=== PATIENT | female | born 1965 | race Caucasian/White ===

== ENCOUNTER 2018-12-12 19:56 | Emergency (ER) | payer SELFPAY ==
[2018-12-12] MEDS ORDERED: THIAMINE 200 MG/2 ML INJ ONE (20:27)
[2018-12-12] MEDS ORDERED: FOLIC ACID 5 MG/ML VIAL ONE (20:27)
[2018-12-12] MEDS ORDERED: NA CHLORIDE 0.9% 1,000 ML ONE (20:27)
[2018-12-12 20:31] LABS: Absolute Lymphocytes (CBC) 1.6 K/uL (0.7-4.9); Basophils % 1.8 % (0-1.3); Hematocrit 34.3 % (36.0-45.0); MPV 7.3 fL (7.6-11.3); RBC Red Blood Cell Count 3.99 M/uL (3.86-4.86)
--- NOTE | 2018-12-12 20:31 | RAD REPORT ---
EXAM DESCRIPTION: CT - Ct Stroke Brain Wo Cont - 12/12/2018 8:23 pm CLINICAL HISTORY: SLURRED SPEECH CVA symptomology. COMPARISON: No comparisons TECHNIQUE: All CT scans are performed using dose optimization technique as appropriate and may inclu de automated exposure control or mA/KV adjustment according to patient size. FINDINGS: No intracranial hemorrhage, hydrocephalus or extra-axial fluid collection.No areas of brai n edema or evidence of midline shift. The paranasal sinuses and mastoids are clear. The calvarium is intact. IMPRESSION: No acute intracranial abnormality. The findings were discussed with ER physician Dr. Alicea on 12/12/2018 at 8:17 p.m. by telephone.
[2018-12-12 20:35] LABS: Protime INR 0.96
--- NOTE | 2018-12-12 20:37 | RAD REPORT ---
EXAM DESCRIPTION: RAD - Chest Single View - 12/12/2018 8:29 pm CLINICAL HISTORY: stroke protocol Chest pain. COMPARISON: No comparisons FINDINGS: Portable technique limits examination quality. The lungs are grossly clear. The heart is mildly prominent in size. No displaced fractures. IMPRESSION: No acute intrathoracic process suspected.
[2018-12-12 20:58] LABS: ALT/SGPT 30 U/L (12-78); AST/SGOT 28 U/L (15-37); Albumin 3.3 g/dL (3.4-5.0); Alkaline Phosphatase 84 U/L (45-117); BUN Blood Urea Nitrogen 13 mg/dL (7-18); Bicarbonate 27 mmol/L (21-32); Bilirubin Direct 0.3 mg/dL (0-0.2); Bilirubin Total 0.9 mg/dL (0.2-1.0); Glucose Level 116 mg/dL (74-106); Potassium 3.2 mmol/L (3.5-5.1); Sodium Level 145 mmol/L (136-145)
[2018-12-12] MEDS ORDERED: ASPIRIN 81 MG CHEWABLE TABLET ONE (21:06)
--- NOTE | 2018-12-12 21:33 | ER ---
Nurse's Notes [facility] Name: Colleen Cornejo Age: 52 yrs Sex: Female : 1965 Arrival Date: 12/12/2018 Time: 20:01 Bed 2 Private MD: Diagnosis: Fall due to bumping against object;Pain in left upper arm-contusion;Alcohol abuse with intoxication;Abuse of non-psychoactive substances;Hypokalemia Presentation: 12/12 20:11 Presenting complaint: Patient states: "my left arm is hurting me. I took some jd3 medication I was told was OxyContin, but I don't know what it was. that was earlier in the morning though." the patient's adult child stated: "all of a sudden she was not able to stay awake to well and slurring her speech.". Transition of care: patient was not received from another setting of care. An acute neurological deficit is present. The charge nurse has been notified. The patient has been moved to a treatment area. Pre-hospital glucose is not applicable to this patient. Onset of symptoms was December 12, 2018. Risk Assessment: Do you want to hurt yourself or someone else? Patient reports no desire to harm self or others. Initial Sepsis Screen: Does the patient meet any 2 criteria? HR > 90 bpm. No. Patient's initial sepsis screen is negative. Does the patient have a suspected source of infection? No. Patient's initial sepsis screen is negative. Care prior to arrival: None. 20:11 Method Of Arrival: Wheelchair jd3 20:11 Acuity: ZAINA 2 jd3 Triage Assessment: 20:10 The onset of the patients symptoms was less than three hours ago. General: Behavior is ao calm, cooperative. General: Appears in no apparent distress. comfortable, Behavior is calm, cooperative. Pain: Complains of pain in left arm. EENT: No signs and/or symptoms were reported regarding the EENT system. Neuro: Level of Consciousness is awake, obeys commands, lethargic, Oriented to person, place, time, Speech is slurred, Facial symmetry appears normal, Pupils are PERRLA, Intact Reports weakness in Generalize. Cardiovascular: Capillary refill is > 3 seconds. Respiratory: Airway is patent Respiratory effort is even, unlabored, Respiratory pattern is regular, symmetrical. GI: No signs and/or symptoms were reported involving the gastrointestinal system. : No signs and/or symptoms were reported regarding the genitourinary system. Derm: Skin has lesions on Both arms and legs Skin is pink, warm \\T\\ dry. normal, Skin temperature is warm. Musculoskeletal: Circulation, motion, and sensation intact. Range of motion: intact in all extremities. 20:20 The onset of the patients symptoms was December 12, 2018 at 18:00. Pain: Complains of jd3 pain in left arm. Neuro: Level of Consciousness is awake, obeys commands, lethargic, Oriented to person, place, time, situation, Speech is slurred, Reports weakness in left arm. 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 - Social history:: Smoking status: unknown. - Ebola Screening: : Patient negative for fever greater than or equal to 101.5 degrees Fahrenheit, and additional compatible Ebola Virus Disease symptoms. Screenin:10 VAN Screening: Arm Drift: Minor drift. Visual Disturbance: No visual disturbance noted. ao Aphasia: Expressive aphasia noted. Provider notified of +VAN scoring. Neglect: No neglect noted. The patient has not been NPO before screening. The patient is alert, able to follow commands. The patient exhibits slurred or garbled speech. Provider notified of indication for Speech Therapy consult. The patient is not exhibiting difficulty speaking. The patient is exhibiting difficulty understanding words. The patient is able to swallow own secretions with no drooling or need for suction. Patient tolerated one teaspoon of water. No drooling, immediate coughing, gurgling, or clearing of the throat was noted. The patient tolerated 90mL of water. No drooling, immediate coughing, gurgling, or clearing of the throat was noted. The patient passed the bedside swallow screening. Oral medications may be given as ordered. Contact Physician for further diet orders. Provider notified of bedside swallow screening results: Ruben Nath MD. 20:24 Abuse screen: Denies threats or abuse. Denies injuries from another. Nutritional rr5 screening: No deficits noted. Tuberculosis screening: No symptoms or risk factors identified. Fall Risk IV access (20 points). Gait- Impaired (20 pts.). Total Benitez Fall Scale indicates Low Risk Score (25-44 pts). Fall prevention measures have been instituted. Side Rails Up X 2 Placed close to Nursing Station Frequent Obs/Assesments occuring Family Present and informed to notify staff if they need to leave bedside As available Patient and Family Educated on Fall Prevention Program and strategies. Assessment: 20:05 VAN Scoring: Arm Drift: Minor drift Visual Disturbance: No visual disturbance noted. ao Aphasia: Expressive aphasia noted. Provider notified of +VAN scoring. Neglect: No neglect noted. The patient has not been NPO before screening. The patient is alert, and able to follow commands. The patient exhibits slurred or garbled speech. The patient is exhibiting difficulty speaking. The patient does not exhibit difficulty understanding words. The patient is able to swallow own secretions with no drooling or need for suction. Patient tolerated one teaspoon of water. No drooling, immediate coughing, gurgling, or clearing of the throat was noted. The patient tolerated 90mL of water. No drooling, immediate coughing, gurgling, or clearing of the throat was noted. The patient passed the bedside swallow screening. Oral medications may be given as ordered. Contact Physician for further diet orders. Provider notified of bedside swallow screening results: Ruben Nath MD. 21:22 Reassessment: Patient appears in no apparent distress at this time. Patient and/or ao family updated on plan of care and expected duration. Pain level reassessed. Patient in bed with no SS of distress. 22:13 Reassessment: Patient appears in no apparent distress at this time. Patient and/or rr5 family updated on plan of care and expected duration. Pain level reassessed. 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 Patient states feeling better. Patient states symptoms have improved. 22:34 T-PA (Activase) Screening: Contraindications: Other: Pt negative for stroke per Dr rose mary Nath. Vital Signs: 20:17 BP 176 / 97; Pulse 118; Resp 19 S; Temp 98.5(TE); Pulse Ox 100% on R/A; Weight 61.23 kg jd3 (R); Height 5 ft. 4 in. (162.56 cm) (R); Pain 6/10; 21:22 BP 140 / 88; Pulse 94; Resp 18; Pulse Ox 100% on R/A; ao 22:05 BP 141 / 70; Pulse 90; Resp 16; Pulse Ox 99% on R/A; rr5 20:17 Body Mass Index 23.17 (61.23 kg, 162.56 cm) jd3 Sesser Coma Score: 20:15 Eye Response: spontaneous(4). Verbal Response: oriented(5). Motor Response: obeys rr5 commands(6). Total: 15. 22:05 Eye Response: spontaneous(4). Verbal Response: oriented(5). Motor Response: obeys rr5 commands(6). Total: 15. NIH Stroke Scale Scores: 21:51 NIHSS Score: 0 zeinab 23:11 NIHSS Score: 5 ao ED Course: 20:01 Patient arrived in ED. cl3 20:11 Ruben Nath MD is Attending Physician. zeinab 20:15 property assessment monitor on. Pulse ox on. NIBP on. rr5 20:15 Patient has correct armband on for positive identification. Placed in gown. Bed in low rr5 position. Call light in reach. Side rails up X2. 20:15 Inserted saline lock: 18 gauge in right forearm, using aseptic technique. Blood rr5 collected. 20:15 Patient maintains SpO2 saturation greater than 95% on room air. rr5 20:16 Triage completed. jd3 20:20 Arm band placed on Patient placed in an exam room, on a stretcher, on monitoring engineer, jd3 on pulse oximetry. 20:24 Donn Posey, MUKESH is Primary Nurse. ao 20:25 CT Stroke Brain w/o Contrast In Process Unspecified. EDMS 20:30 Stroke CXR 1 View In Process Unspecified. EDMS 21:14 Humerus Left XRAY In Process Unspecified. EDMS 22:05 Shoulder immobilizer applied on left shoulder. rr5 22:12 No provider procedures requiring assistance completed. IV discontinued, intact, rr5 bleeding controlled, No redness/swelling at site. Pressure dressing applied. Administered Medications: 20:31 Drug: NS 0.9% 1000 ml Route: IV; Rate: 1 bolus; Site: right forearm; rr5 22:00 Follow up: Response: No adverse reaction; IV Status: Completed infusion; IV Intake: rr5 1000ml 20:31 Drug: Thiamine 100 mg Route: IV; Rate: bolus; Site: right forearm; rr5 22:00 Follow up: Response: No adverse reaction; IV Status: Completed infusion rr5 20:31 Drug: foLIC Acid 1 mg Route: IVPB; Site: right forearm; rr5 22:00 Follow up: Response: No adverse reaction; IV Status: Completed infusion rr5 21:11 Drug: Aspirin Chewable Tablet 162 mg Route: PO; rr5 22:11 Follow up: Response: No adverse reaction rr5 22:00 Drug: Potassium Effervescent Tablet 50 mEq Route: PO; rr5 22:15 Follow up: Response: Medication administered at discharge. rr5 Point of Care Testing: Blood Glucose: 20:17 Blood Glucose: 120 mg/dL; jd3 Ranges: Intake: 22:00 IV: 1000ml; Total: 1000ml. rr5 Outcome: 21:31 Discharge ordered by . zeinab 22:12 Discharged to home ambulatory, with family. rr5 22:12 Condition: stable 22:12 Discharge instructions given to patient, family, Instructed on discharge instructions, follow up and referral plans. Demonstrated understanding of instructions, follow-up care. 22:14 Patient left the ED. rr5 NIH Stroke Scale - NIH Stroke Score Date: 12/12/2018 Time: 21:51 Total Score = 0 1a. Level of Consciousness (LOC) - 0(Alert) 1b. Level of Consciousness (LOC) (Year \\T\\ Age) - 0(Both) 1c. LOC Commands (Open \\T\\ Closes Eyes/Correctional Sergeant) - 0(Both) 2. Best Gaze (Lateral Gaze Paresis) - 0(Normal) 3. Visual Field Loss - 0(No visual loss) 4. Facial Palsy - 0(Normal) 5a. Left Arm: Motor (10-second hold) - 0(No drift) 5b. Right Arm: Motor (10-second hold) - 0(No drift) 6a. Left Leg: Motor (5-second hold - always test supine) - 0(No drift) 6b. Right Leg: Motor (5-second hold - always test supine) - 0(No drift) 7. Limb Ataxia (finger/nose \\T\\ heel/hernandez - test with eyes open) - 0(Absent) 8. Sensory Loss (pinprick arms/legs/face) - 0(Normal) 9. Best Language: Aphasia (description/naming/reading) - 0(No aphasia) 10. Dysarthria (speech clarity - read or repeat words) - 0(Normal) 11. Extinction and Inattention (visual/tactile/auditory/spatial/personal) - 0(No abnormality) Initials: zeinab NIH Stroke Scale - NIH Stroke Score Date: 12/12/2018 Time: 23:11 Total Score = 5 1a. Level of Consciousness (LOC) - 0(Alert) 1b. Level of Consciousness (LOC) (Year \\T\\ Age) - 0(Both) 1c. LOC Commands (Open \\T\\ Closes Eyes/Correctional Sergeant) - 0(Both) 2. Best Gaze (Lateral Gaze Paresis) - 0(Normal) 3. Visual Field Loss - 0(No visual loss) 4. Facial Palsy - 0(Normal) 5a. Left Arm: Motor (10-second hold) - 1(Drift) 5b. Right Arm: Motor (10-second hold) - 1(Drift) 6a. Left Leg: Motor (5-second hold - always test supine) - 1(Drift) 6b. Right Leg: Motor (5-second hold - always test supine) - 1(Drift) 7. Limb Ataxia (finger/nose \\T\\ heel/hernandez - test with eyes open) - 0(Absent) 8. Sensory Loss (pinprick arms/legs/face) - 0(Normal) 9. Best Language: Aphasia (description/naming/reading) - 1(Mild to moderate aphasia) 10. Dysarthria (speech clarity - read or repeat words) - 0(Normal) 11. Extinction and Inattention (visual/tactile/auditory/spatial/personal) - 0(No abnormality) Initials: ao Signatures: Dispatcher [employer] EDRuben Nicholson MD MD cha Ortiz, Alex RN Ck Guallpa RN RN jd3 Roque, Raymond, RN RN rr5 Minerva Lazo cl3 Corrections: (The following items were deleted from the chart) 20:32 20:15 Inserted saline lock: 20 gauge in right forearm, using aseptic technique. rr5 Blood collected. rr5 23:13 20:05 NIHSS Score: 10 ao ao
--- NOTE | 2018-12-12 21:34 | EDPHYS ---
Physician Documentation [facility] Name: Colleen Cornejo Age: 52 yrs Sex: Female : 1965 Arrival Date: 12/12/2018 Time: 20:01 Bed 2 Private MD: ED Physician Ruben Nath HPI: 12/12 20:21 This 52 yrs old Female presents to ER via Wheelchair with complaints of Arm zeinab Pain. 20:21 The patient or guardian complains of. 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 - Social history:: Smoking status: unknown. - Ebola Screening: : Patient negative for fever greater than or equal to 101.5 degrees Fahrenheit, and additional compatible Ebola Virus Disease symptoms. ROS: 21:00 Constitutional: Negative for fever, chills, and weight loss, Eyes: Negative for injury, zeinab pain, redness, and discharge, ENT: Negative for injury, pain, and discharge, Neck: Negative for injury, pain, and swelling, Cardiovascular: Negative for chest pain, palpitations, and edema, Respiratory: Negative for shortness of breath, cough, wheezing, and pleuritic chest pain, Abdomen/GI: Negative for abdominal pain, nausea, vomiting, diarrhea, and constipation, Back: Negative for injury and pain, : Negative for injury, bleeding, discharge, and swelling, Skin: Negative for injury, rash, and discoloration, Neuro: Negative for headache, weakness, numbness, tingling, and seizure, Psych: Negative for depression, anxiety, suicide ideation, homicidal ideation, and hallucinations, Allergy/Immunology: Negative for hives, rash, and allergies, Endocrine: Negative for neck swelling, polydipsia, polyuria, polyphagia, and marked weight changes, Hematologic/Lymphatic: Negative for swollen nodes, abnormal bleeding, and unusual bruising. 21:00 MS/extremity: Positive for injury or acute deformity, decreased range of motion, pain, of the anterior aspect of left shoulder, left bicep, posterior aspect of left shoulder and left tricep. Exam: 21:00 Constitutional: This is a well developed, well nourished patient who is awake, alert, zeinab and in no acute distress. Head/Face: Normocephalic, atraumatic. Eyes: Pupils equal round and reactive to light, extra-ocular motions intact. Lids and lashes normal. Conjunctiva and sclera are non-icteric and not injected. Cornea within normal limits. Periorbital areas with no swelling, redness, or edema. ENT: Nares patent. No nasal discharge, no septal abnormalities noted. Tympanic membranes are normal and external auditory canals are clear. Oropharynx with no redness, swelling, or masses, exudates, or evidence of obstruction, uvula midline. Mucous membranes moist. Neck: Trachea midline, no thyromegaly or masses palpated, and no cervical lymphadenopathy. Supple, full range of motion without nuchal rigidity, or vertebral point tenderness. No Meningismus. Chest/axilla: Normal chest wall appearance and motion. Nontender with no deformity. No lesions are appreciated. Cardiovascular: Regular rate and rhythm with a normal S1 and S2. No gallops, murmurs, or rubs. Normal PMI, no JVD. No pulse deficits. Respiratory: Lungs have equal breath sounds bilaterally, clear to auscultation and percussion. No rales, rhonchi or wheezes noted. No increased work of breathing, no retractions or nasal flaring. Abdomen/GI: Soft, non-tender, with normal bowel sounds. No distension or tympany. No guarding or rebound. No evidence of tenderness throughout. Back: No spinal tenderness. No costovertebral tenderness. Full range of motion. Skin: Warm, dry with normal turgor. Normal color with no rashes, no lesions, and no evidence of cellulitis. Neuro: Awake and alert, GCS 15, oriented to person, place, time, and situation. Cranial nerves II-XII grossly intact. Motor strength 5/5 in all extremities. Sensory grossly intact. Cerebellar exam normal. Normal gait. Psych: Awake, alert, with orientation to person, place and time. Behavior, mood, and affect are within normal limits. 21:00 Musculoskeletal/extremity: ROM: limited active range of motion, limited passive range of motion, limited active range of motion due to pain, limited passive range of motion due to pain, Circulation is intact in all extremities. Sensation intact. Compartment Syndrome exam of affected extremity: is normal. DVT Exam: no swelling, negative Homans' sign noted on exam, no appreciated bluish discoloration, no erythema, no increased warmth, pain, tenderness. Vital Signs: 20:17 BP 176 / 97; Pulse 118; Resp 19 S; Temp 98.5(TE); Pulse Ox 100% on R/A; Weight 61.23 kg jd3 (R); Height 5 ft. 4 in. (162.56 cm) (R); Pain 6/10; 21:22 BP 140 / 88; Pulse 94; Resp 18; Pulse Ox 100% on R/A; ao 22:05 BP 141 / 70; Pulse 90; Resp 16; Pulse Ox 99% on R/A; rr5 20:17 Body Mass Index 23.17 (61.23 kg, 162.56 cm) jd3 NIH Stroke Scale Scores: 21:51 NIHSS Score: 0 zeinab 23:11 NIHSS Score: 5 ao [place] Coma Score: 20:15 Eye Response: spontaneous(4). Verbal Response: oriented(5). Motor Response: obeys rr5 commands(6). Total: 15. 22:05 Eye Response: spontaneous(4). Verbal Response: oriented(5). Motor Response: obeys rr5 commands(6). Total: 15. MDM: 20:11 Patient medically screened. [facility] 21:01 Data reviewed: vital signs, nurses notes, lab test result(s), EKG, radiologic studies, [facility] CT scan, plain films. 12/12 20:18 Order name: Basic Metabolic Panel; Complete Time: 21:29 12/12 20:18 Order name: CBC with Diff; Complete Time: 20:59 12/12 20:18 Order name: Protime (+inr); Complete Time: 20:59 12/12 20:18 Order name: Ptt, Activated; Complete Time: 20:59 12/12 20:20 Order name: ETOH Level; Complete Time: 20:59 [facility] 12/12 20:18 Order name: CT Stroke Brain w/o Contrast; Complete Time: 20:59 12/12 20:18 Order name: Stroke CXR 1 View; Complete Time: 20:59 12/12 20:20 Order name: Salicylate; Complete Time: 21:29 [facility] 12/12 20:20 Order name: Urine Drug Screen [facility] 12/12 20:37 Order name: Liver (Hepatic) Function; Complete Time: 21:29 [facility] 12/12 20:37 Order name: Acetaminophen Level; Complete Time: 21:29 [facility] 12/12 22:04 Order name: Urine Dipstick--Ancillary (enter results) ag4 12/12 20:18 Order name: EKG; Complete Time: 20:20 12/12 20:18 Order name: Accucheck; Complete Time: 20: 12/12 20:18 Order name: Cardiac monitoring; Complete Time: 20: 12/12 20:18 Order name: EKG - Nurse/Tech; Complete Time: 20: 12/12 20:18 Order name: IV Saline Lock; Complete Time: 20: 12/12 20:18 Order name: Labs collected and sent; Complete Time: 20: 12/12 20:18 Order name: NPO; Complete Time: 20: 12/12 20:18 Order name: O2 Per Protocol; Complete Time: 20: 12/12 20:18 Order name: O2 Sat Monitoring; Complete Time: 20: 12/12 20:18 Order name: Stroke Swallow Screen; Complete Time: 20: 12/12 20:59 Order name: Humerus Left XRAY [facility] 12/12 20:20 Order name: Urine Dipstick-Ancillary (obtain specimen); Complete Time: 22:12 [facility] 12/12 21:00 Order name: Sling; Complete Time: 22:10 [facility] Administered Medications: 20:31 Drug: NS 0.9% 1000 ml Route: IV; Rate: 1 bolus; Site: right forearm; rr5 22:00 Follow up: Response: No adverse reaction; IV Status: Completed infusion; IV Intake: rr5 1000ml 20:31 Drug: Thiamine 100 mg Route: IV; Rate: bolus; Site: right forearm; rr5 22:00 Follow up: Response: No adverse reaction; IV Status: Completed infusion rr5 20:31 Drug: foLIC Acid 1 mg Route: IVPB; Site: right forearm; rr5 22:00 Follow up: Response: No adverse reaction; IV Status: Completed infusion rr5 21:11 Drug: Aspirin Chewable Tablet 162 mg Route: PO; rr5 22:11 Follow up: Response: No adverse reaction rr5 22:00 Drug: Potassium Effervescent Tablet 50 mEq Route: PO; rr5 22:15 Follow up: Response: Medication administered at discharge. rr5 Point of Care Testing: Blood Glucose: 20:17 Blood Glucose: 120 mg/dL; jd3 Ranges: Critical Glucose Levels:Adult <50 mg/dl or >400 mg/dl <40 mg/dl or >180 mg/dl Disposition: 12/12/18 21:31 Discharged to Home. Impression: Fall due to bumping against object, Pain in left upper arm - contusion, Alcohol abuse with intoxication, Abuse of non-psychoactive substances, Hypokalemia. - Condition is Stable. - Discharge Instructions: Alcohol Intoxication, Potassium Content of Foods, Fall Prevention in the Home, Musculoskeletal Pain, Substance Use Disorder, Alcohol Intoxication, Migg-vv-Olzx, Alcohol Abuse and Nutrition, Fall Prevention in the Home, Drzu-hr-Wvnh, Aspirin and Your Heart, Hypokalemia. - Medication Reconciliation Form, Thank You Letter, Antibiotic Education, Prescription Opioid Use form. - Follow up: Private Physician; When: 2 - 3 days; Reason: Recheck today's complaints, Continuance of care, Re-evaluation by your physician. - Problem is new. - Symptoms have improved. NIH Stroke Scale - NIH Stroke Score Date: 12/12/2018 Time: 21:51 Total Score = 0 1a. Level of Consciousness (LOC) - 0(Alert) 1b. Level of Consciousness (LOC) (Year \T\ Age) - 0(Both) 1c. LOC Commands (Open \T\ Closes Eyes/Patient Transport Officer) - 0(Both) 2. Best Gaze (Lateral Gaze Paresis) - 0(Normal) 3. Visual Field Loss - 0(No visual loss) 4. Facial Palsy - 0(Normal) 5a. Left Arm: Motor (10-second hold) - 0(No drift) 5b. Right Arm: Motor (10-second hold) - 0(No drift) 6a. Left Leg: Motor (5-second hold - always test supine) - 0(No drift) 6b. Right Leg: Motor (5-second hold - always test supine) - 0(No drift) 7. Limb Ataxia (finger/nose \T\ heel/hernandez - test with eyes open) - 0(Absent) 8. Sensory Loss (pinprick arms/legs/face) - 0(Normal) 9. Best Language: Aphasia (description/naming/reading) - 0(No aphasia) 10. Dysarthria (speech clarity - read or repeat words) - 0(Normal) 11. Extinction and Inattention (visual/tactile/auditory/spatial/personal) - 0(No abnormality) Initials: zeianb NIH Stroke Scale - NIH Stroke Score Date: 12/12/2018 Time: 23:11 Total Score = 5 1a. Level of Consciousness (LOC) - 0(Alert) 1b. Level of Consciousness (LOC) (Year \T\ Age) - 0(Both) 1c. LOC Commands (Open \T\ Closes Eyes/Patient Transport Officer) - 0(Both) 2. Best Gaze (Lateral Gaze Paresis) - 0(Normal) 3. Visual Field Loss - 0(No visual loss) 4. Facial Palsy - 0(Normal) 5a. Left Arm: Motor (10-second hold) - 1(Drift) 5b. Right Arm: Motor (10-second hold) - 1(Drift) 6a. Left Leg: Motor (5-second hold - always test supine) - 1(Drift) 6b. Right Leg: Motor (5-second hold - always test supine) - 1(Drift) 7. Limb Ataxia (finger/nose \T\ heel/hernandez - test with eyes open) - 0(Absent) 8. Sensory Loss (pinprick arms/legs/face) - 0(Normal) 9. Best Language: Aphasia (description/naming/reading) - 1(Mild to moderate aphasia) 10. Dysarthria (speech clarity - read or repeat words) - 0(Normal) 11. Extinction and Inattention (visual/tactile/auditory/spatial/personal) - 0(No abnormality) Initials: ao Signatures: Dispatcher [employer] EDMS Ruben Nath MD MD cha Ballard, Brenda, RN RN bb Davies, Jonathon, RN RN jd3 Roque, Raymond, RN RN rr5 Corrections: (The following items were deleted from the chart) 20:37 20:21 ACETAMINOPHEN+C.LAB.BRZ ordered. EDMS EDMS 20:37 20:21 HEPATIC FUNCTION+C.LAB.BRZ ordered. EDMS EDMS 22:14 21:31 12/12/2018 21:31 Discharged to Home. Impression: Fall due to bumping rr5 against object; Pain in left upper arm - contusion; Alcohol abuse with intoxication; Abuse of non-psychoactive substances; Hypokalemia. Condition is Stable. Discharge Instructions: Alcohol Intoxication, Fall Prevention in the Home, Musculoskeletal Pain, Substance Use Disorder, Alcohol Intoxication, Epan-pu-Ncjc, Alcohol Abuse and Nutrition, Fall Prevention in the Home, Zztc-gq-Vrzb, Aspirin and Your Heart, Potassium Content of Foods, Hypokalemia. Forms are Medication Reconciliation Form, Thank You Letter, Antibiotic Education, Prescription Opioid Use. Follow up: Private Physician; When: 2 - 3 days; Reason: Recheck today's complaints, Continuance of care, Re-evaluation by your physician. Problem is new. Symptoms have improved. zeinab
[2018-12-12] MEDS ORDERED: POTASSIUM 25 MEQ EFFERV TAB ONE (21:57)
--- NOTE | 2018-12-12 22:12 | RAD REPORT ---
EXAM DESCRIPTION: RAD - Humerus Left - 12/12/2018 9:13 pm CLINICAL HISTORY: PAIN COMPARISON: <Comparisons> FINDINGS: No acute fracture or dislocation evident.
[2018-12-12 22:23] LABS: Urine Blood NEGATIVE (NEG); Urine Glucose NEGATIVE (NEG); Urine Protein NEGATIVE (NEG); Urine Specific Gravity 1.015 (1.005-1.030)
[2018-12-12 22:46] LABS: Barbiturates NEGATIVE (NEGATIVE); Benzodiazepines NEGATIVE (NEGATIVE); Cocaine NEGATIVE (NEGATIVE); METHAMPHETAM POSITIVE (NEGATIVE); Methadone NEGATIVE (NEGATIVE); Opiates POSITIVE (NEGATIVE); Phencyclidine NEGATIVE (NEGATIVE); THC Cannibis NEGATIVE (NEGATIVE)
--- NOTE | 2018-12-13 09:49 | EKG ---
Test Date: 2018-12-12 Test Time: 20:20:38 Senior Business Objects Developer: BENTLEY MEASUREMENT RESULTS: Intervals: Rate: 97 VA: 154 QRSD: 110 QT: 380 QTc: 482 [place]: P: 61 VA: 154 QRS: 1 T: 62 INTERPRETIVE STATEMENTS: Normal sinus rhythm Possible Left atrial enlargement Incomplete right bundle branch block Septal infarct, age undetermined Abnormal ECG No previous ECG available for comparison Electronically Signed On 12-13-18 09:47:56 CDT by Noel Hollis
== END 2018-12-12 22:14 | disposition home or self-care (01) ==
LOC: ER 19:56
DX: M79.622 Pain in left upper arm (principal); W18.00XA Striking against unspecified object with subsequent fall, initial encounter; F55.8 Abuse of other non-psychoactive substances; F10.129 Alcohol abuse with intoxication, unspecified; E87.6 Hypokalemia
CPT/HCPCS: 36415; 70450; 71045; 80048; 80076; 80307; 80320; 80329; 81003; 82962; 85025; 85610; 85730; 93005; 96365; 96368; 99285; J3411; J7030

== ENCOUNTER 2021-08-10 10:41 | Emergency (ER) | payer SELFPAY ==
--- OUTSIDE RECORDS SUMMARY | 2021-08-10 10:44 | XMS REPORT | Continuity of Care Document ---
:1965 Author Organization [facility] t Address [address] [place] [address] Care Team Providers Name Role Phone PCP, DOES NOT HAVE A Primary Care Physician Unavailable FELISA Attending Clinician Unavailable MINI JHONSTON Attending Clinician Unavailable FELISA Admitting Clinician Unavailable Problems This patient has no known problems. Allergies, Adverse Reactions, Alerts Allergy Allergy Status Severity Reaction(s) Onset Inactive Treating Comm ents Source Name Type Date Date Clinician NO KNOWN Drug Active [facility] ALLERGIE Class [facility] Medications This patient has no known medications. Procedures This patient has no known procedures. Encounters Start End Encounter Admission Attending Care Care Encounter Source Date/Time Date/Time Type Type Clinicians Facility Department ID 2019-11-19 2019-11-[address] [facility] ERT [id number] [facility] 14:45:00 14:45:00 [facility] 2019-07-21 2019-07-21 [facility] REJ[facility] [id number] [facility] 10:16:47 14:51:00 [facility] 2019-07-21 2019-07-21 [facility] E[facility] [id number] [facility] 10:16:47 10:16:47 RAMOS [facility] Results Test Description Test Time Test Comments Results Result Comments Source COMPREHENSIVE METABOLIC PANEL 2021-06-19 05:59:38 Test Item Value Reference Range Interpretation Comme nts GLUCOSE (test code = 2217) 93 MG/DL 70-99 BUN (test code = 2208) 17 MG/DL 6-20 CREATININE (test code = 0.63 MG/DL 0.60-1.30 2213) eGFR (2020 CKD-EPI) (test 103 ML/MIN/1.73 >60 code = 60244) CALC BUN/CREAT (test code = 27 RATIO 6-28 2234) SODIUM (test code = 223) 142 MEQ/L 133-146 POTASSIUM (test code = 4.1 MEQ/L 3.5-5.4 2227) CHLORIDE (test code = 221) 102 MEQ/L 95-107 CARBON DIOXIDE (test code = 25 MEQ/L 19-31 2205) CALCIUM (test code = 2208) 9.1 MG/DL 8.5-10.5 PROTEIN, TOTAL (test code = 7.6 G/DL 6.1-8.3 2228) ALBUMIN (test code = 2200) 4.8 G/DL 3.5-5.2 CALC GLOBULIN (test code = 2.8 G/DL 1.9-3.7 2239) CALC A/G RATIO (test code = 1.7 RATIO 1.0-2.6 2233) BILIRUBIN, TOTAL (test code 0.9 MG/DL See_Comment [Automated message] The = 2206) system which ge nerated this result transmit jaci reference range: <=1.2. T he reference range was not u sed to interpret this result as normal/abnormal . ALKALINE PHOSPHATASE (test 78 U/L 40-136 code = 220) AST (test code = 2218) 26 U/L 9-40 ALT (test code = 2219) 24 U/L 5-40 UNLESS OTHERWISE INDICATED, ALL TESTING PERFORMED [facility] [address] [place] [id number] BEDSPREAD CUTTER HAND: LAVELL TORRES M.D. CLIA NUMBER [id number] CAP ACCREDITATION N O. [id number]
[2021-08-10] MEDS ORDERED: ONDANSETRON 4 MG (ODT) TAB ONE (11:10)
[2021-08-10] MEDS ORDERED: PHENYLEPHRINE 0.5% NOSE 15ML NAS ONE (11:10)
[2021-08-10] MEDS ORDERED: lisinopriL 20 MG TAB ONE (11:10)
[2021-08-10] MEDS ORDERED: HYDROCODONE/APAP 10/325 TAB ONE (11:18)
--- NOTE | 2021-08-10 14:32 | EDPHYS ---
Physician Documentation [facility] Name: Colleen Deleon Age: 55 yrs Sex: Female : 1965 Arrival Date: 08/10/2021 Time: 10:43 Bed 9 Private MD: ED Physician David Ceballos HPI: 08/10 10:48 This 55 yrs old Female presents to ER via Ambulatory with complaints of Nose Bleed. jmm 10:48 The patient presents with a nose bleed, that is apparently anterior. Onset: The jmm symptoms/episode began/occurred yesterday. Modifying factors: The symptoms are alleviated by nothing. the symptoms are aggravated by nothing. This is a 55-year-old female with history of hypertension the presents emerged department with complaints of nosebleed. Nosebleed initially began last night which was relieved with pressure. Nosebleed returned this morning and patient was unable to control the the bleed herself.. Historical: - Allergies: 10:51 No Known Allergies; jd3 - Home Meds: 10:51 lisinopril Oral [Active]; jd3 - PMHx: 10:51 Hypertension; jd3 - Immunization history:: Adult Immunizations up to date, Client reports having NOT received the Covid vaccine. Flu vaccine is not up to date. - Social history:: Smoking status: Patient denies any tobacco usage or history of. ROS: 10:48 Constitutional: Negative for fever, chills, and weight loss. jmm 10:48 ENT: Positive for nose bleed. 10:48 All other systems are negative. Exam: 10:48 Constitutional: This is a well developed, well nourished patient who is awake, alert, jmm and in no acute distress. Head/Face: atraumatic. Eyes: EOMI, no conjunctival erythema appreciated 10:48 Neck: Trachea midline, Supple Chest/axilla: Normal chest wall appearance and motion. Cardiovascular: Regular rate and rhythm. No edema appreciated Respiratory: Normal respirations, no respiratory distress appreciated Abdomen/GI: Non distended, soft Back: Normal ROM Skin: General appearance color normal MS/ Extremity: Moves all extremities, no obvious deformities appreciated, no edema noted to the lower extremities Neuro: Awake and alert Psych: Behavior is normal, Mood is normal, Patient is cooperative and pleasant 10:48 ENT: Nose: clotted blood, in both nares, Posterior pharynx: Blood clots noted to the posterior pharynx. Vital Signs: 10:51 BP 192 / 129; Pulse 120; Resp 19 S; Temp 97.5(TE); Pulse Ox 99% on R/A; Weight 76.2 kg jd3 (R); Height 5 ft. 4 in. (162.56 cm) (R); Pain 0/10; 13:56 BP 173 / 90; Pulse 90; Resp 16; Pulse Ox 100% on R/A; Pain 0/10; ss 10:51 Body Mass Index 28.84 (76.20 kg, 162.56 cm) jd3 Procedures: 15:45 Performed Rhino Rocket insertion. Rhino Rocket was inserted in left nostril. No [facility] bleeding appreciated after insertion.. MDM: 11:00 Patient medically screened. [facility] 14:31 Data reviewed: vital signs, nurses notes. Counseling: I had a detailed discussion with [facility] the patient and/or guardian regarding: the historical points, exam findings, and any diagnostic results supporting the discharge/admit diagnosis, the need for outpatient follow up, to return to the emergency department if symptoms worsen or persist or if there are any questions or concerns that arise at home. 08/10 13:47 Order name: Vital Signs; Complete Time: 13:57 [facility] Administered Medications: 11:09 Drug: Ondansetron 4 mg Route: PO; jd3 14:45 Follow up: Response: No adverse reaction ss 11:09 Drug: Lisinopril 40 mg Route: PO; jd3 14:44 Follow up: Response: No adverse reaction; Blood pressure is lowered ss 11:12 Drug: Ian-Synephrine (phenylephrine) Brandon 0.5 % 2 sprays Route: Intranasal; Site: left jd3 nare; 11:16 Drug: [place] (HYDROcodone-acetaminophen) 10 mg-325 mg 1 tabs Route: PO; jd3 13:57 Follow up: Response: No adverse reaction; Pain is decreased ss Disposition: 19:13 Co-signature as Attending Physician, David Ceballos MD. rn Disposition Summary: 08/10/21 14:31 Discharge Ordered Location: Home [facility] Condition: Stable [facility] Diagnosis - Epistaxis [facility] Followup: [facility] - With: Angelique Campbell MD - When: 1 - 2 days - Reason: Recheck today's complaints, Continuance of care, Re-evaluation by your physician Discharge Instructions: - Discharge Summary Sheet [facility] - Nosebleed, Adult [facility] Forms: - Medication Reconciliation Form [facility] - Thank You Letter lane - Antibiotic Education [facility] - Prescription Opioid Use [facility] Prescriptions: - Clindamycin HCl 300 mg Oral Capsule - take 1 capsule by ORAL route every 6 hours for 10 days; 40 capsule; Refills: 0, [facility] Product Selection Permitted - Lisinopril 20 mg Oral Tablet - take 1 tablet by ORAL route once daily; 90 tablet; Refills: 0, Product [facility] Selection Permitted Signatures: Edgar Fry PA PA jmm Nieto, Roman, MD MD rn Davies, Jonathon, RN RN jd3 Smirch, Shelby RN ss
--- NOTE | 2021-08-10 14:32 | ER ---
Nurse's Notes [facility] Name: Colleen Deleon Age: 55 yrs Sex: Female : 1965 Arrival Date: 08/10/2021 Time: 10:43 Bed 9 Private MD: Diagnosis: Epistaxis Presentation: 08/10 10:48 Chief complaint: Patient states: "my nose started bleeding last night, but it stopped. jd3 I woke up this morning at 0700 and it has not stopped bleeding since. I am having huge clots coming out now. no blood thinners.". Coronavirus screen: At this time, the client does not indicate any symptoms associated with coronavirus-19. Ebola Screen: No symptoms or risks identified at this time. Initial Sepsis Screen: Does the patient meet any 2 criteria? No. Patient's initial sepsis screen is negative. Does the patient have a suspected source of infection? No. Patient's initial sepsis screen is negative. Risk Assessment: Do you want to hurt yourself or someone else? Patient reports no desire to harm self or others. Onset of symptoms was August 10, 2021. 10:48 Method Of Arrival: Ambulatory jd3 10:48 Acuity: ZAINA 4 jd3 Historical: - Allergies: 10:51 No Known Allergies; jd3 - Home Meds: 10:51 lisinopril Oral [Active]; jd3 - PMHx: 10:51 Hypertension; jd3 - Immunization history:: Adult Immunizations up to date, Client reports having NOT received the Covid vaccine. Flu vaccine is not up to date. - Social history:: Smoking status: Patient denies any tobacco usage or history of. Screenin:45 Abuse screen: Denies threats or abuse. Denies injuries from another. Nutritional ss screening: No deficits noted. Tuberculosis screening: Never had TB. Fall Risk None identified. Assessment: 12:45 General: Appears in no apparent distress. comfortable, Behavior is calm, cooperative, ss Pt states, "I feel better. It's not running down my throat like it was." Rhino rocket remains in place. Will continue to monitor patient for any change in bleeding. Pain: Denies pain. Neuro: Level of Consciousness is awake, alert, obeys commands, Oriented to person, place, time, situation. Cardiovascular: Capillary refill < 3 seconds is brisk in bilateral fingers. Respiratory: Airway is patent Respiratory effort is even, unlabored, Respiratory pattern is regular, symmetrical. GI: Patient currently denies diarrhea, nausea, vomiting. EENT: Nares are clear. Derm: Skin is intact, is healthy with good turgor, Skin is dry, Skin is pink, warm \\T\\ dry. normal. Vital Signs: 10:51 BP 192 / 129; Pulse 120; Resp 19 S; Temp 97.5(TE); Pulse Ox 99% on R/A; Weight 76.2 kg jd3 (R); Height 5 ft. 4 in. (162.56 cm) (R); Pain 0/10; 13:56 BP 173 / 90; Pulse 90; Resp 16; Pulse Ox 100% on R/A; Pain 0/10; ss 10:51 Body Mass Index 28.84 (76.20 kg, 162.56 cm) [facility] ED Course: 10:43 Patient arrived in ED. mr 10:49 Triage completed. [facility] 10:51 Edgar Fry PA is PHCP. [facility] 10:51 David Ceballos MD is Attending Physician. [facility] 10:52 Arm band placed on. jd3 11:03 Nurse Practitioner and/or Physician Construction Project Coordinator to see patient. jd3 11:03 Patient notified of wait time. jd3 12:45 Leann Perkins, MUKESH is Primary Nurse. ss 12:45 Patient has correct armband on for positive identification. Bed in low position. Call ss light in reach. Noise minimized. Lights dimmed. Warm blanket given. 14:31 Angelique Campbell MD is Referral Physician. [facility] 14:43 No provider procedures requiring assistance completed. Patient did not have IV access ss during this emergency room visit. Administered Medications: 11:09 Drug: Ondansetron 4 mg Route: PO; jd3 14:45 Follow up: Response: No adverse reaction 11:09 Drug: Lisinopril 40 mg Route: PO; jd3 14:44 Follow up: Response: No adverse reaction; Blood pressure is lowered ss 11:12 Drug: Ian-Synephrine (phenylephrine) Jackson 0.5 % 2 sprays Route: Intranasal; Site: left j nare; 11:16 Drug: [place] (HYDROcodone-acetaminophen) 10 mg-325 mg 1 tabs Route: PO; jd3 13:57 Follow up: Response: No adverse reaction; Pain is decreased ss Outcome: 14:31 Discharge ordered by . taylor 14:43 Discharged to home ambulatory. 14:43 Condition: good 14:43 Discharge instructions given to patient, Instructed on discharge instructions, follow up and referral plans. medication usage, Demonstrated understanding of instructions, follow-up care, medications, Prescriptions given X 2. 14:51 Patient left the ED. Signatures: Edgar Fry PA PA jmm Rivera, Mary mr Leann Perkins, RN RN Ck Sparks RN RN jd3 Corrections: (The following items were deleted from the chart) 11:32 10:48 Acuity: ZAINA 3 jd3 jd3
[2021-08-10 16:30] VITALS: TEMP 97.5
[2021-08-10 16:32] VITALS: BP 173/90; O2SAT 100
== END 2021-08-10 14:51 | disposition home or self-care (01) ==
LOC: ER 10:41
PROC: 2Y41X5Z Packing of Nasal Region using Packing Material (ICD-10-PCS; principal; 2021-08-10)
DX: R04.0 Epistaxis (principal); I10 Essential (primary) hypertension
CPT/HCPCS: 99283